=== PATIENT | female | born 1955 | race Caucasian/White ===

== ENCOUNTER → 2017-02-01 | Outpatient (REF) | payer OTHER ==
[2017-02-01 19:30] LABS: ALBUMIN 3.2 GM/DL (3.2-5.2); ALBUMIN/GLOBULIN RATIO 0.86 (1.00-1.93); BILIRUBIN,TOTAL 0.3 MG/DL (0.2-1.0); CALCIUM LEVEL 9.2 MG/DL (8.8-10.2); CREATININE FOR GFR 1.27 MG/DL (0.55-1.02); GLOMERULAR FILTRATION RATE 45.2 (>45); POTASSIUM SERUM 4.7 MEQ/L (3.5-5.1); TOTAL PROTEIN 6.9 GM/DL (6.4-8.2)
== END ==
LOC: M SFHCCLAY 13:17
PROVIDERS: ATTEND Family Medicine
DX: I10 Essential (primary) hypertension (principal); E11.9 Type 2 diabetes mellitus without complications

== ENCOUNTER → 2017-05-03 | Outpatient (CLI) | payer OTHER ==
--- NOTE | 2017-05-04 01:02 | REP ---
Clinical: Left-sided thoracic pain . Comparison: 11/04/2005 . Technique: PA and lateral. Findings: The mediastinum and cardiac silhouette are stable with evidence of prior sternotomy and CABG. Hiatal hernia noted. The lung cramer are clear and without acute consolidation, effusion, or pneumothorax. The skeletal structures are intact and normal. Impression: 1. No acute cardiopulmonary process.
== END ==
LOC: M CLY 15:56
PROVIDERS: ATTEND Family Medicine
DX: R07.81 Pleurodynia (principal)

== ENCOUNTER → 2017-09-22 | Outpatient (REF) | payer OTHER ==
[2017-09-22 20:33] LABS: APPEARANCE, URINE CLEAR (CLEAR); BACTERIA, URINE AUTO NEGATIVE (NEGATIVE); BILIRUBIN, URINE AUTO NEGATIVE (NEGATIVE); BLOOD, URINE BLOOD NEGATIVE (NEGATIVE); COLOR, URINE STRAW (YELLOW); GLUCOSE, URINE (UA) AUTO 1+ mg/dL (NEGATIVE); KETONE, URINE AUTO NEGATIVE (NEGATIVE); LEUKOCYTE ESTERASE, URINE AUTO NEGATIVE (NEGATIVE); MUCUS, URINE SMALL (NEGATIVE); NITRITE, URINE AUTO NEGATIVE (NEGATIVE); PROTEIN, URINE AUTO NEGATIVE (NEGATIVE); RBC, URINE AUTO 0 /HPF (0-3); SPECIFIC GRAVITY URINE AUTO 1.006 (1.002-1.035); SQUAMOUS EPITHELIAL CELL UR AU 1 /HPF (0-6); UROBILINOGEN, URINE AUTO 0.2 mg/dL (0.0-2.0); WBC, URINE AUTO 0 /HPF (0-3)
== END ==
LOC: M SMT 16:58
DX: R35.0 Frequency of micturition (principal)

== ENCOUNTER → 2017-10-07 | Outpatient (CLI) | payer OTHER | LOC: M RAD 07:14 | DX: R10.11 Right upper quadrant pain (principal) ==

== ENCOUNTER → 2018-04-04 | Outpatient (REF) | payer OTHER ==
[2018-04-04 16:40] LABS: BASO # 0.1 10^3/uL (0.0-0.2); BASO % 0.6 % (0.0-1.0); EOS # 0.1 10^3/uL (0.0-0.50); EOS % 1.1 % (0.0-3.0); HEMATOCRIT 34.1 % (36.0-47.0); HEMOGLOBIN 10.7 g/dl (12.0-15.5); IMMATURE GRANULOCYTE % 0.2 % (0-3.0); LYMPH # 1.7 10^3/uL (1.5-4.5); LYMPH % 20.7 % (24.0-44.0); MEAN CORPUSCULAR HEMOGLOBIN 27.4 pg (27.0-33.0); MEAN CORPUSCULAR HGB CONC 31.4 g/dl (32.0-36.5); MEAN CORPUSCULAR VOLUME 87.4 fl (80.0-96.0); MONO # 0.5 10^3/uL (0.0-0.8); MONO % 5.6 % (0.0-5.0); NEUTROPHILS # 5.9 10^3/uL (1.8-7.7); NEUTROPHILS % 71.8 % (36.0-66.0); PLATELET COUNT, AUTOMATED 321 10^3/uL (150-450); RED CELL DISTRIBUTION WIDTH 13.4 % (11.5-14.5); WHITE BLOOD COUNT 8.2 10^3/uL (4.0-10.0)
[2018-04-05 01:07] LABS: ESTIMATED AVERAGE GLUCOSE 146 MG/DL (60-110); HEMOGLOBIN A1c 6.7 %
[2018-04-05 01:13] LABS: ALBUMIN 3.3 GM/DL (3.2-5.2); ALBUMIN/GLOBULIN RATIO 0.87 (1.00-1.93); ALKALINE PHOSPHATASE 43 U/L (45-117); ALT/SGPT 20 U/L (12-78); ANION GAP 11 MEQ/L (8-16); AST/SGOT 12 U/L (7-37); BILIRUBIN,TOTAL 0.3 MG/DL (0.2-1.0); BLOOD UREA NITROGEN 30 MG/DL (7-18); CALCIUM LEVEL 8.9 MG/DL (8.8-10.2); CARBON DIOXIDE LEVEL 26 MEQ/L (21-32); CHLORIDE LEVEL 101 MEQ/L (98-107); CREATININE FOR GFR 1.48 MG/DL (0.55-1.30); GLOMERULAR FILTRATION RATE 37.8 (>45); GLUCOSE, FASTING 163 MG/DL (70-100); IRON (FE) 56 UG/DL (50-170); POTASSIUM SERUM 4.2 MEQ/L (3.5-5.1); SODIUM LEVEL 138 MEQ/L (136-145); TOTAL PROTEIN 7.1 GM/DL (6.4-8.2)
== END ==
LOC: M SFHCCLAY 11:20
DX: E11.9 Type 2 diabetes mellitus without complications (principal); I10 Essential (primary) hypertension; R00.2 Palpitations; D50.9 Iron deficiency anemia, unspecified

== ENCOUNTER → 2018-07-08 | Outpatient (REF) | payer MEDICARE, OTHER ==
[2018-07-08 16:36] LABS: BASO # 0.1 10^3/uL (0.0-0.2); BASO % 0.7 % (0.0-1.0); EOS # 0.1 10^3/uL (0.0-0.50); EOS % 1.1 % (0.0-3.0); HEMATOCRIT 33.6 % (36.0-47.0); HEMOGLOBIN 10.6 g/dl (12.0-15.5); LYMPH # 1.8 10^3/uL (1.5-4.5); LYMPH % 25.5 % (24.0-44.0); MEAN CORPUSCULAR HEMOGLOBIN 27.5 pg (27.0-33.0); MEAN CORPUSCULAR HGB CONC 31.5 g/dl (32.0-36.5); MONO # 0.4 10^3/uL (0.0-0.8); MONO % 5.8 % (0.0-5.0); NEUTROPHILS # 4.7 10^3/uL (1.8-7.7); NEUTROPHILS % 66.5 % (36.0-66.0); PLATELET COUNT, AUTOMATED 287 10^3/uL (150-450); RED BLOOD COUNT 3.86 10^6/uL (4.00-5.40); WHITE BLOOD COUNT 7.1 10^3/uL (4.0-10.0)
[2018-07-08 16:44] LABS: ALBUMIN 3.4 GM/DL (3.2-5.2); BILIRUBIN,TOTAL 0.2 MG/DL (0.2-1.0); CALCIUM LEVEL 9.2 MG/DL (8.8-10.2); CREATININE FOR GFR 1.27 MG/DL (0.55-1.30); POTASSIUM SERUM 4.1 MEQ/L (3.5-5.1); TOTAL PROTEIN 6.9 GM/DL (6.4-8.2)
[2018-07-08 17:27] LABS: HEMOGLOBIN A1c 7.6 %
== END ==
LOC: M SFHCCLAY 11:56
PROVIDERS: ATTEND Family Medicine
DX: E11.9 Type 2 diabetes mellitus without complications (principal); D50.9 Iron deficiency anemia, unspecified

== ENCOUNTER → 2018-11-10 | Outpatient (REF) | payer MEDICARE ==
[2018-11-11 11:19] LABS: BASO # 0.1 10^3/uL (0.0-0.2); BASO % 0.6 % (0.0-1.0); EOS # 0.1 10^3/uL (0.0-0.50); EOS % 1.3 % (0.0-3.0); HEMATOCRIT 31.5 % (36.0-47.0); LYMPH # 2.3 10^3/uL (1.5-4.5); LYMPH % 27.9 % (24.0-44.0); MEAN CORPUSCULAR HEMOGLOBIN 27.7 pg (27.0-33.0); MEAN CORPUSCULAR HGB CONC 31.7 g/dl (32.0-36.5); MEAN CORPUSCULAR VOLUME 87.3 fl (80.0-96.0); MONO # 0.6 10^3/uL (0.0-0.8); NEUTROPHILS # 5.2 10^3/uL (1.8-7.7); NEUTROPHILS % 62.8 % (36.0-66.0); PLATELET COUNT, AUTOMATED 288 10^3/uL (150-450); RED BLOOD COUNT 3.61 10^6/uL (4.00-5.40); WHITE BLOOD COUNT 8.2 10^3/uL (4.0-10.0)
[2018-11-11 13:43] LABS: ALBUMIN 3.6 GM/DL (3.2-5.2); BILIRUBIN,TOTAL 0.3 MG/DL (0.2-1.0); CALCIUM LEVEL 9.1 MG/DL (8.8-10.2); CHOLESTEROL RISK RATIO 3.195 (<5); CREATININE FOR GFR 1.35 MG/DL (0.55-1.30); GLOMERULAR FILTRATION RATE 41.9 (>45); POTASSIUM SERUM 4.1 MEQ/L (3.5-5.1); TOTAL PROTEIN 6.8 GM/DL (6.4-8.2)
== END ==
LOC: M SFHCCLAY 13:58
PROVIDERS: ATTEND Family Medicine
DX: E11.9 Type 2 diabetes mellitus without complications (principal); I10 Essential (primary) hypertension; R10.11 Right upper quadrant pain
CPT/HCPCS: 80053; 80061; 82150; 83540; 83690; 85025; G0463

== ENCOUNTER → 2018-11-18 | Outpatient (CLI) | payer MEDICARE ==
--- NOTE | 2018-11-18 17:53 | REP ---
MR CERVICAL SPINE WITHOUT CONTRAST: HISTORY: Cervicalgia. COMPARISON: 03/21/2015. Uncinate process hypertrophy is present on the right at the C2-3 level. This produces minimal narrowing of the right C2 neural foramen . The left C2 neural foramen is patent. A disc bulge is present at the C3-4 level. There is minimal effacement of the thecal sac without spinal cord compression. Uncinate process hypertrophy is present on the left. This produces minimal narrowing of the left C3 neural foramen. The right C3 neural foramen is patent. A disc bulge is present at the C4-5 level. There is minimal effacement of the thecal sac without spinal cord compression. Uncinate process hypertrophy is present on the left. This produces minimal narrowing of the left C4 neural foramen . The right C4 neural foramen is patent. A disc bulge with associated osteophyte formation is present at the C5-6 level. The previously noted disc protrusion is not seen. There is mild effacement of the thecal sac without spinal cord compression. Bilateral uncinate process hypertrophy is present. This produces minimal narrowing of the C5 neural foramina. A disc bulge with associated osteophyte formation is present at the C6-7 level. There is moderate effacement of the thecal sac without spinal cord compression. Bilateral uncinate process hypertrophy is present. This produces mild and moderate narrowing of the right and left C6 neural foramina respectively. There is no other disc bulge or herniation. The remaining neural foramina are patent. The spinal cord is normal in signal intensity. The C5-6 and C6-7 intervertebral discs are decreased in height consistent with disc degeneration. Normal signal intensity is present in the cervical vertebral bodies. IMPRESSION: There is cervical spondylosis at the C2-3 through C6-7 levels without spinal cord compression. The previously noted disc protrusion at the C5-6 level is not seen. There is no other significant change. Electronically Signed by Bryn Quezada MD 11/18/2018 05:58 P
--- NOTE | 2018-11-18 18:32 | REP ---
MR LUMBAR SPINE WITHOUT CONTRAST: HISTORY: Cervicalgia. COMPARISON: 06/30/2014. Decreased signal intensity on T2-weighted images is present in the L2-3 through L5-S1 intervertebral discs. The discs are decreased are in height. These findings are consistent with disc degeneration. There is no disc bulge or herniation at the L1-2 level. The L1 nerves exit the neural foramina without compression. A diffuse disc bulge is present at the L2-3 level. There is minimal compression of the thecal sac. The L2 nerves exit the neural foramina without compression. A diffuse disc bulge is present at the L3-4 level. There is hypertrophy of the ligamenta flava and posterior articulating facets. These findings produce moderate central canal stenosis. The L3 nerves exit the neural foramina without compression. A diffuse disc bulge is present at the L4-5 level. There is hypertrophy of the ligamenta flava and posterior articulating facets. These findings produce severe central canal stenosis. The L4 nerves exit the neural foramina without compression. A diffuse disc bulge and small central disc protrusion are present at the L5-S1 level. The disc protrusion abuts the thecal sac and S1 nerves. There is hypertrophy of the posterior articulating facets. The L5 nerves exit the neural foramina without compression. The conus medullaris is normal in appearance terminating at the level of the T12-L1 intervertebral discs . Normal signal intensity is present in the lumbar vertebral bodies. IMPRESSION:1. Diffuse disc bulge at the L2-3 level with minimal thecal sac compression. 2. Moderate central canal stenosis at the L3-4 level secondary to disc bulge, ligamentous and facet hypertrophy. This is a new finding. 3. Severe central canal stenosis at the L4-5 level secondary to disc bulge, ligamentous and facet hypertrophy. There has been progression of the canal stenosis. 4. Diffuse disc bulge and small central disc protrusion at the L5-S1 level. The disc protrusion abuts the thecal sac and S1 nerves. Electronically Signed by Bryn Quezada MD 11/18/2018 06:35 P
== END ==
LOC: M PLARAD 13:39
PROVIDERS: ATTEND Family Medicine
DX: M48.062 Spinal stenosis, lumbar region with neurogenic claudication (principal); M50.21 Other cervical disc displacement, high cervical region; M50.221 Other cervical disc displacement at C4-C5 level; M50.223 Other cervical disc displacement at C6-C7 level; M47.892 Other spondylosis, cervical region; M25.78 Osteophyte, vertebrae; M51.36 Other intervertebral disc degeneration, lumbar region; M51.26 Other intervertebral disc displacement, lumbar region; M51.27 Other intervertebral disc displacement, lumbosacral region

== ENCOUNTER → 2019-02-13 | Outpatient (REF) | payer MEDICARE ==
[2019-02-13 17:31] LABS: CALCIUM LEVEL 9.1 MG/DL (8.8-10.2); CREATININE FOR GFR 1.33 MG/DL (0.55-1.30); GLOMERULAR FILTRATION RATE 42.6 (>45); POTASSIUM SERUM 4.8 MEQ/L (3.5-5.1)
== END ==
LOC: M SFHCCLAY 11:21
PROVIDERS: ATTEND Family Medicine
DX: E11.9 Type 2 diabetes mellitus without complications (principal); Z23 Encounter for immunization
CPT/HCPCS: 80048; 83036; 90670; G0009; G0463

== ENCOUNTER → 2019-06-19 | Outpatient (REF) | payer MEDICARE ==
[2019-06-19 16:55] LABS: BILIRUBIN,TOTAL 0.4 MG/DL (0.2-1.0); CALCIUM LEVEL 8.6 MG/DL (8.8-10.2); CREATININE FOR GFR 1.4 MG/DL (0.55-1.30); GLOMERULAR FILTRATION RATE 40.1 (>45); POTASSIUM SERUM 4.6 MEQ/L (3.5-5.1); TOTAL PROTEIN 6.3 GM/DL (6.4-8.2)
[2019-06-19 17:06] LABS: HEMOGLOBIN A1c 7.8 %
== END ==
LOC: M SFHCCLAY 10:01
PROVIDERS: ATTEND Family Medicine
DX: E11.9 Type 2 diabetes mellitus without complications (principal)
CPT/HCPCS: 80053; 83036; G0463

== ENCOUNTER → 2020-05-20 | Outpatient (REF) | payer MEDICARE ==
[2020-05-21 12:33] LABS: HEMOGLOBIN A1c 7.2 %
[2020-05-21 12:50] LABS: ALBUMIN 3.2 GM/DL (3.2-5.2); ALT/SGPT 13 U/L (12-78); BILIRUBIN,TOTAL 0.3 MG/DL (0.2-1.0); BLOOD UREA NITROGEN 29 MG/DL (7-18); CALCIUM LEVEL 8.6 MG/DL (8.8-10.2); CARBON DIOXIDE LEVEL 25 MEQ/L (21-32); CHLORIDE LEVEL 104 MEQ/L (98-107); CHOLESTEROL LEVEL 145 MG/DL (<200); CHOLESTEROL RISK RATIO 3.625 (<5); CREATININE FOR GFR 1.65 MG/DL (0.55-1.30); GLUCOSE, FASTING 187 MG/DL (70-100); HDL CHOLESTEROL 40 MG/DL (>40); NON-HDL-C 105 MG/DL; POTASSIUM SERUM 4.9 MEQ/L (3.5-5.1); SODIUM LEVEL 137 MEQ/L (136-145); TOTAL PROTEIN 6.6 GM/DL (6.4-8.2); TRIGLYCERIDES LEVEL 504 MG/DL (<150)
== END ==
LOC: M SFHCCLAY 14:40
PROVIDERS: ATTEND Family Medicine
DX: E11.9 Type 2 diabetes mellitus without complications (principal); I10 Essential (primary) hypertension
CPT/HCPCS: 80053; 80061; 83036; G0463

== ENCOUNTER → 2021-04-29 | Outpatient (REF) | payer MEDICARE ==
[2021-04-29 14:39] LABS: BASO # 0.1 10^3/uL (0.0-0.2); BASO % 0.6 % (0.0-1.0); EOS # 0.1 10^3/uL (0.0-0.5); EOS % 1.4 % (0.0-3.0); HEMATOCRIT 35.2 % (36.0-47.0); HEMOGLOBIN 10.8 g/dl (12.0-15.5); LYMPH % 23.3 % (24.0-44.0); MEAN CORPUSCULAR HEMOGLOBIN 27.6 pg (27.0-33.0); MEAN CORPUSCULAR HGB CONC 30.7 g/dl (32.0-36.5); MEAN CORPUSCULAR VOLUME 89.8 fl (80.0-96.0); MONO # 0.5 10^3/uL (0.0-0.8); MONO % 5.9 % (2.0-8.0); NEUTROPHILS # 5.8 10^3/uL (1.5-8.5); NEUTROPHILS % 68.4 % (36.0-66.0); PLATELET COUNT, AUTOMATED 265 10^3/uL (150-450); RED BLOOD COUNT 3.92 10^6/uL (4.00-5.40); WHITE BLOOD COUNT 8.5 10^3/uL (4.0-10.0)
[2021-04-29 17:13] LABS: ALBUMIN 3.2 GM/DL (3.2-5.2); BILIRUBIN,TOTAL 0.3 MG/DL (0.2-1.0); CALCIUM LEVEL 9.1 MG/DL (8.8-10.2); CHOLESTEROL RISK RATIO 3.037 (<5); CREATININE FOR GFR 1.31 MG/DL (0.55-1.30); FOLATE 10.4 NG/ML (>5.4); GLOMERULAR FILTRATION RATE 43.1 (>45); POTASSIUM SERUM 4.3 MEQ/L (3.5-5.1); TOTAL PROTEIN 6.7 GM/DL (6.4-8.2)
== END ==
LOC: M SFHCCLAY 11:06
PROVIDERS: ATTEND Family Medicine
DX: R20.0 Anesthesia of skin (principal); E11.9 Type 2 diabetes mellitus without complications; I10 Essential (primary) hypertension
CPT/HCPCS: 80053; 80061; 82607; 82746; 83036; 85025; G0463

== ENCOUNTER → 2021-05-02 | Outpatient (CLI) | payer MEDICARE ==
--- NOTE | 2021-05-02 16:00 | REPVR ---
PROCEDURE INFORMATION: Exam: MR Cervical Spine Without Contrast Exam date and time: 05/02/2021 2:58 PM Age: 65 years old Clinical indication: Radicular pain (radiculopathy); Cervical region; Additional info: Cervicalgia, L arm weakness TECHNIQUE: Imaging protocol: Multiplanar magnetic resonance images of the cervical spine without contrast. COMPARISON: MRI-Spine,Cervical without con 11/18/2018 3:06 PM FINDINGS: Vertebrae: Anatomic alignment. No acute fracture seen. Spinal cord: Normal signal. No cord compression. Disc height loss and spondylosis is marked at C6-C7, mild at C5-C6. No significant interval change in the appearance of degenerative disc disease based on the sagittal imaging compared to the prior study. C2-C3: No significant interval change. The central spinal canal is patent. Mild uncovertebral arthropathy does not contribute to significant foraminal stenoses. C3-C4: The central spinal canal is patent. Uncovertebral and facet arthropathy causing moderate left and mild to moderate right neural foraminal stenoses. The degree of neural foraminal narrowing has progressed, in particular on the left. C4-C5: A new 2 mm central disc protrusion does not contribute to central spinal canal stenosis. There is mild ligamentum flavum buckling, as before. Mild uncovertebral and facet arthropathy without contribution to significant foraminal stenoses. C5-C6: No significant interval change. Disc osteophyte complex and ligamentum flavum buckling. Borderline mild central spinal canal stenosis. Uncovertebral and facet arthropathy causing mild bilateral neural foraminal stenoses. C6-C7: No significant interval change. Disc osteophyte complex and ligamentum flavum buckling causing borderline mild central spinal canal stenosis. Uncovertebral and facet arthropathy causing severe bilateral neural foraminal stenoses. C7-T1: No significant interval change. Mild disc bulge and slight ligamentum flavum buckling. The central spinal canal remains patent. Severe right and moderate left facet arthropathy causing [id number] right neural foraminal stenosis. No significant left neural foraminal narrowing. Soft tissues: Unremarkable. Vertebral arteries: Expected flow voids in the vertebral arteries. IMPRESSION: 1. Progressive, now moderate in degree left neural foraminal stenosis at C3-C4 due to uncovertebral and facet arthropathy. 2. A new, small central disc protrusion at C4-C5 does not contribute to central spinal canal stenosis. 3. Severe bilateral neural foraminal stenoses again demonstrated at C6-C7. Electronically signed by: Jena Mcnamara On 05/02/2021 16:00:24 PM
== END ==
LOC: M PLARAD 13:53
PROVIDERS: ATTEND Family Medicine
DX: M54.2 Cervicalgia (principal); R29.898 Other symptoms and signs involving the musculoskeletal system

== ENCOUNTER → 2021-07-01 | Outpatient (CLI) | payer MEDICARE | LOC: M CLY 14:04 | PROVIDERS: ATTEND Family Medicine | DX: R07.81 Pleurodynia (principal) | CPT/HCPCS: 71101; G0463 ==

== ENCOUNTER → 2021-09-01 | Outpatient (REF) | payer MEDICARE ==
[2021-09-01 17:12] LABS: ALBUMIN 3.1 GM/DL (3.2-5.2); BILIRUBIN,TOTAL 0.2 MG/DL (0.2-1.0); CALCIUM LEVEL 8.7 MG/DL (8.8-10.2); CREATININE FOR GFR 1.42 MG/DL (0.55-1.30); GLOMERULAR FILTRATION RATE 39.2 (>45); POTASSIUM SERUM 4.5 MEQ/L (3.5-5.1); TOTAL PROTEIN 6.7 GM/DL (6.4-8.2)
[2021-09-01 19:05] LABS: HEMOGLOBIN A1c 7.5 %
== END ==
LOC: M SFHCCLAY 13:19
PROVIDERS: ATTEND Family Medicine
DX: E11.9 Type 2 diabetes mellitus without complications (principal)

== ENCOUNTER → 2022-01-05 | Outpatient (REF) | payer MEDICARE ==
[2022-01-05 17:47] LABS: BILIRUBIN,TOTAL 0.2 MG/DL (0.2-1.0); CALCIUM LEVEL 7.9 MG/DL (8.8-10.2); CREATININE FOR GFR 1.52 MG/DL (0.55-1.30); GLOMERULAR FILTRATION RATE 36.2 (>45); POTASSIUM SERUM 4.1 MEQ/L (3.5-5.1); TOTAL PROTEIN 6.6 GM/DL (6.4-8.2)
[2022-01-05 18:01] LABS: HEMOGLOBIN A1c 7.5 %
== END ==
LOC: M SFHCCLAY 13:53
PROVIDERS: ATTEND Family Medicine
DX: E11.9 Type 2 diabetes mellitus without complications (principal)

== ENCOUNTER → 2022-05-04 | Outpatient (REF) | payer MEDICARE ==
[2022-05-04 17:49] LABS: HEMOGLOBIN A1c 7.6 %
[2022-05-04 17:54] LABS: BILIRUBIN,TOTAL 0.2 MG/DL (0.2-1.0); CALCIUM LEVEL 8.2 MG/DL (8.8-10.2); CHOLESTEROL RISK RATIO 2.803 (<5); CREATININE FOR GFR 1.38 MG/DL (0.55-1.30); GLOMERULAR FILTRATION RATE 40.5 (>45); POTASSIUM SERUM 4.7 MEQ/L (3.5-5.1); TOTAL PROTEIN 6.5 GM/DL (6.4-8.2)
== END ==
LOC: M SFHCCLAY 13:50
PROVIDERS: ATTEND Family Medicine
DX: E11.9 Type 2 diabetes mellitus without complications (principal)

== ENCOUNTER → 2022-12-28 | Outpatient (REF) | payer MEDICARE ==
[2022-12-28 17:59] LABS: HEMATOCRIT 33.2 % (36.0-47.0); HEMOGLOBIN 10.5 g/dl (12.0-15.5); MEAN CORPUSCULAR HEMOGLOBIN 28.4 pg (27.0-33.0); MEAN CORPUSCULAR HGB CONC 31.6 g/dl (32.0-36.5); MEAN CORPUSCULAR VOLUME 89.7 fl (80.0-96.0); PLATELET COUNT, AUTOMATED 317 10^3/uL (150-450); WHITE BLOOD COUNT 7.1 10^3/uL (4.0-10.0)
[2022-12-28 18:21] LABS: ALBUMIN 3.2 G/DL (3.2-5.2); BILIRUBIN,TOTAL 0.3 MG/DL (0.3-1.2); CALCIUM LEVEL 8.3 MG/DL (8.3-10.6); CREATININE FOR GFR 1.38 MG/DL (0.55-1.30); GLOMERULAR FILTRATION RATE 40.4 (>45); MAGNESIUM LEVEL 1.2 MG/DL (1.8-2.4); POTASSIUM SERUM 4.7 MMOL/L (3.5-5.1); TOTAL PROTEIN 6.5 G/DL (5.7-8.2)
[2022-12-28 18:27] LABS: HEMOGLOBIN A1c 8.2 % (4.0-6.0)
== END ==
LOC: M SFHCCLAY 13:32
PROVIDERS: ATTEND Family Medicine
DX: E11.9 Type 2 diabetes mellitus without complications (principal); I10 Essential (primary) hypertension; K21.9 Gastro-esophageal reflux disease without esophagitis; G47.62 Sleep related leg cramps

== ENCOUNTER → 2023-04-29 | Outpatient (REF) | payer MEDICARE ==
[2023-04-29 18:17] LABS: HEMATOCRIT 32.6 % (36.0-47.0); HEMOGLOBIN 10.3 g/dl (12.0-15.5); MEAN CORPUSCULAR HEMOGLOBIN 28.5 pg (27.0-33.0); MEAN CORPUSCULAR HGB CONC 31.6 g/dl (32.0-36.5); MEAN CORPUSCULAR VOLUME 90.1 fl (80.0-96.0); PLATELET COUNT, AUTOMATED 271 10^3/uL (150-450); RED BLOOD COUNT 3.62 10^6/uL (4.00-5.40); WHITE BLOOD COUNT 7.3 10^3/uL (4.0-10.0)
[2023-04-29 18:45] LABS: ALBUMIN 3.2 G/DL (3.2-5.2); ALKALINE PHOSPHATASE 44 U/L (46-116); ALT/SGPT < 9 U/L (7.0-40); AST/SGOT 11 U/L (<34); BILIRUBIN,TOTAL 0.2 MG/DL (0.3-1.2); BLOOD UREA NITROGEN 35 MG/DL (9-23); CALCIUM LEVEL 8.4 MG/DL (8.3-10.6); CARBON DIOXIDE LEVEL 23 MMOL/L (20-31); CHLORIDE LEVEL 104 MMOL/L (98-107); CREATININE FOR GFR 1.59 MG/DL (0.55-1.30); GLOMERULAR FILTRATION RATE 34.3 (>45); GLUCOSE, FASTING 226 MG/DL (74-106); MAGNESIUM LEVEL 1.4 MG/DL (1.8-2.4); POTASSIUM SERUM 4.5 MMOL/L (3.5-5.1); SODIUM LEVEL 136 MMOL/L (136-145); THYROID STIMULATING HORMONE 0.844 uIU/ML (0.55-4.78); TOTAL PROTEIN 6.2 G/DL (5.7-8.2); TOTAL T3 124.1 NG/DL (60.0-181.0)
[2023-04-29 19:01] LABS: HEMOGLOBIN A1c 7.6 % (4.0-6.0)
== END ==
LOC: M SFHCCLAY 13:56
PROVIDERS: ATTEND Family Medicine
DX: I10 Essential (primary) hypertension (principal); E11.9 Type 2 diabetes mellitus without complications

== ENCOUNTER → 2023-12-02 | Outpatient (REF) | payer MEDICARE ==
[2023-12-02 18:54] LABS: HEMATOCRIT 33.3 % (36.0-47.0); HEMOGLOBIN 10.7 g/dl (12.0-15.5); MEAN CORPUSCULAR HEMOGLOBIN 28.2 pg (27.0-33.0); MEAN CORPUSCULAR HGB CONC 32.1 g/dl (32.0-36.5); MEAN CORPUSCULAR VOLUME 87.9 fl (80.0-96.0); PLATELET COUNT, AUTOMATED 269 10^3/uL (150-450); RED BLOOD COUNT 3.79 10^6/uL (4.00-5.40); WHITE BLOOD COUNT 7.6 10^3/uL (4.0-10.0)
[2023-12-02 19:09] LABS: HEMOGLOBIN A1c 8.2 % (4.0-6.0)
[2023-12-02 19:19] LABS: ALBUMIN 2.9 G/DL (3.2-5.2); ALKALINE PHOSPHATASE 42 U/L (46-116); ALT/SGPT 12 U/L (7.0-40); AST/SGOT 12 U/L (<34); BILIRUBIN,TOTAL 0.3 MG/DL (0.3-1.2); BLOOD UREA NITROGEN 39 MG/DL (9-23); CALCIUM LEVEL 9.3 MG/DL (8.3-10.6); CARBON DIOXIDE LEVEL 24 MMOL/L (20-31); CHLORIDE LEVEL 104 MMOL/L (98-107); CHOLESTEROL LEVEL 146 MG/DL (<200); CHOLESTEROL RISK RATIO 3.65 (<5); CREATININE FOR GFR 1.51 MG/DL (0.55-1.30); GLOMERULAR FILTRATION RATE 36.3 (>39); GLUCOSE, FASTING 284 MG/DL (74-106); POTASSIUM SERUM 4.9 MMOL/L (3.5-5.1); SODIUM LEVEL 136 MMOL/L (136-145); TOTAL PROTEIN 6.4 G/DL (5.7-8.2); TRIGLYCERIDES LEVEL 419 MG/DL (<150)
== END ==
LOC: M SFHCCLAY 14:50
PROVIDERS: ATTEND Family Medicine
DX: I10 Essential (primary) hypertension (principal); E11.9 Type 2 diabetes mellitus without complications; R06.02 Shortness of breath

== ENCOUNTER → 2024-03-30 | Outpatient (CLI) | payer MEDICARE | LOC: M PLARAD 09:47 | PROVIDERS: ATTEND Family Medicine | DX: M54.59 Other low back pain (principal) ==

== ENCOUNTER → 2024-04-21 | Outpatient (CLI) | payer MEDICARE | LOC: M PLARAD 13:54 | PROVIDERS: ATTEND Family Medicine | DX: M50.30 Other cervical disc degeneration, unspecified cervical region (principal); M54.12 Radiculopathy, cervical region ==

== ENCOUNTER → 2024-06-02 | Outpatient (REF) | payer MEDICARE ==
[2024-06-02 17:06] LABS: HEMOGLOBIN 10.3 g/dl (12.0-15.5); MEAN CORPUSCULAR HGB CONC 32.2 g/dl (32.0-36.5); MEAN CORPUSCULAR VOLUME 90.1 fl (80.0-96.0); PLATELET COUNT, AUTOMATED 256 10^3/uL (150-450); RED BLOOD COUNT 3.55 10^6/uL (4.00-5.40); WHITE BLOOD COUNT 6.9 10^3/uL (4.0-10.0)
[2024-06-02 17:24] LABS: ALBUMIN 3.1 G/DL (3.2-5.2); BILIRUBIN,TOTAL 0.3 MG/DL (0.3-1.2); CALCIUM LEVEL 9.1 MG/DL (8.3-10.6); CREATININE FOR GFR 1.52 MG/DL (0.55-1.30); GLOMERULAR FILTRATION RATE 35.9 (>39); POTASSIUM SERUM 4.2 MMOL/L (3.5-5.1); TOTAL PROTEIN 6.8 G/DL (5.7-8.2)
[2024-06-02 17:33] LABS: HEMOGLOBIN A1c 7.5 % (4.0-6.0)
== END ==
LOC: M SFHCCLAY 14:47
PROVIDERS: ATTEND Family Medicine
DX: E11.9 Type 2 diabetes mellitus without complications (principal); N18.32 Chronic kidney disease, stage 3b

== ENCOUNTER → 2024-06-08 | Outpatient (CLI) | payer MEDICARE | LOC: M PLAIMG 11:52 | PROVIDERS: ATTEND Registered Nurse | DX: I08.0 Rheumatic disorders of both mitral and aortic valves (principal) ==

== ENCOUNTER → 2024-12-01 | Outpatient (REF) | payer MEDICARE ==
[2024-12-01 17:35] LABS: HEMATOCRIT 32.2 % (36.0-47.0); HEMOGLOBIN 10.2 g/dl (12.0-15.5); MEAN CORPUSCULAR HEMOGLOBIN 29.1 pg (27.0-33.0); MEAN CORPUSCULAR HGB CONC 31.7 g/dl (32.0-36.5); PLATELET COUNT, AUTOMATED 246 10^3/uL (150-450); WHITE BLOOD COUNT 6.4 10^3/uL (4.0-10.0)
[2024-12-01 17:38] LABS: ALBUMIN 3.2 G/DL (3.2-5.2); BILIRUBIN,TOTAL 0.3 MG/DL (0.3-1.2); CALCIUM LEVEL 8.9 MG/DL (8.3-10.6); CHOLESTEROL RISK RATIO 3.44 (<5); CREATININE FOR GFR 1.5 MG/DL (0.55-1.30); HDL CHOLESTEROL 43.5 MG/DL (>40); LDL CHOLESTEROL 41.1 MG/DL (<100); MAGNESIUM LEVEL 1.3 MG/DL (1.8-2.4); NON-HDL-C 106.5 MG/DL; POTASSIUM SERUM 4.6 MMOL/L (3.5-5.1); TOTAL PROTEIN 6.5 G/DL (5.7-8.2)
[2024-12-01 17:42] LABS: THYROID STIMULATING HORMONE 1.067 uIU/ML (0.55-4.78)
[2024-12-01 18:10] LABS: HEMOGLOBIN A1c 7.4 % (4.0-6.0)
== END ==
LOC: M SFHCCLAY 11:29
PROVIDERS: ATTEND Family Medicine
DX: E11.9 Type 2 diabetes mellitus without complications (principal); N18.32 Chronic kidney disease, stage 3b; I10 Essential (primary) hypertension